=== PATIENT | female | born 1970 | race Caucasian/White ===

== ENCOUNTER 2017-08-10 18:20 | Inpatient (IN) ==
[2017-08-10] MEDS ORDERED: Sod Chloride 0.9% Inj 1,000 ML IV.SIG ONE ×2 (19:03→21:54)
--- NOTE | 2017-08-10 20:00 | ED ---
HPI General Chief Complaint: Altered Mental Status Stated Complaint: pt confused/evac Time Seen by Provider: 08/10/17 18:57 Source: patient, family and EMS Mode of arrival: EMS Limitations: altered mental status History of Present Illness HPI narrative: 47-year-old female that presents to the ED for evaluation of altered mental status and possible seizure. Apparently patient had an allegedly seizure. Son is at bedside who provides most information as patient herself does appear to be altered and somewhat somnolent. Per son apparently she was in the house just standing and also when she fell into the ground and started going limp. Per son she started moving her arms and legs as if he having a seizure. Her son and patient she has no history of seizures. History of drug abuse. No alcohol. She states that currently she feels weak and history is somewhat limited from her she does appear to be somewhat altered. She denies any pain at this time. She denies any history of this in the past. No history of medical issues and takes no medications. Again history is limited. Most of the history is obtained from the son. She does tell me that she does smoke. Her main concern at this time is that she feels very thirsty and needs to drink water. She was put on restraints because she was apparently fighting the ambulance and providers at the scene. Related Data Home Medications Medication Instructions Recorded Confirmed Unable to Obtain Home Meds 08/10/17 08/10/17 Allergies Allergy/AdvReac Type Severity Reaction Status Date / Time haloperidol Allergy Severe TONGUE Verified 08/10/17 22:31 SWELLS Review of Systems ROS Unobtainable All other systems reviewed negative except as stated in HPI [facility] Surgical History Surgical History Hx of tubal ligation (Acute) Social History Social History Substance History: Active Abuse Second Hand Smoke Exposure: Yes Smoking Status: Current every day smoker Tobacco Type: Cigarettes How Often Do You Have a Drink Containing Alcohol: Never Recent Travel in [facility] within the Last 8 Weeks: No Recent Out of Country Travel within the Last 8 Weeks: No Substance Abuse Detail Marijuana: Substance Use Status: Active Route Used Substance Abuse: Inhalation Last Used: today Substance Abuse Comment: family denies other substance use Reason for Use: Get High Immunization History Tetanus Immunization: Unsure Hx Influenza Vaccine This Season: No Exam Narrative Exam Narrative: GENERAL: Well-appearing SKIN: Focused skin assessment warm/dry. HEAD: Atraumatic. Normocephalic. EYES: Pupils equal and round 4 mm reactive to light and accommodation. No scleral icterus. No injection or drainage. ENT: No nasal bleeding or discharge. Mucous membranes pink and moist. Tongue is midline. No uvula deviation. NECK: Trachea midline. No JVD. CARDIOVASCULAR: Regular rate and rhythm. No murmur appreciated. RESPIRATORY: No accessory muscle use. Clear to auscultation. Breath sounds equal bilaterally. GASTROINTESTINAL: Abdomen soft, non-tender, nondistended. Hepatic and splenic margins not palpable. MUSCULOSKELETAL: No obvious deformities. No clubbing. No cyanosis. No edema. Full range of motion of the upper and lower extremities bilaterally. 2+ pulses bilaterally. NEUROLOGICAL: Awake and alert and oriented to person, time and place. No obvious cranial nerve deficits. Motor grossly within normal limits. Normal speech. PSYCHIATRIC: Appropriate mood and affect; insight and judgment normal. Course Initial Documented Vital Signs Temperature 100.4 F H 08/10/17 18:44 Respiratory Rate 16 08/10/17 18:44 Blood Pressure 161/95 H 08/10/17 18:44 Pulse Oximetry 95 08/10/17 18:44 Last Documented Vital Signs Temperature 100.4 F H 08/10/17 18:55 Pulse Rate 122 H 08/10/17 18:55 Respiratory Rate 16 08/10/17 18:55 Blood Pressure 161/95 H 08/10/17 18:55 Pulse Oximetry 96 08/10/17 18:55 NIH Stroke Scale NIH Stroke Scale Level of Consciousness: 1-Drowsy Orientation Questions: 0-Answers both correct Responds to Commands: 0-Both tasks correct Gaze Eye Movement: 0-Horizontal movement WNL Visual Jones: 0-No visual field defect Facial Movement: 0-Normal Motor Functions Arm LEFT: 0-No drift Motor Functions Arm RIGHT: 0-No drift Motor Functions Leg LEFT: 0-No drift Motor Functions Leg RIGHT: 0-No drift Limb Ataxia: 0-No ataxia Sensory Loss: 0-No sensory loss Best Language: 0-Normal Articulation: 0-Normal Extinction or Inattention Sensory: 0-Absent Total: 1 Medical Decision Making LINDA Attestation LINDA supervised visit: Yes Attestation: The history, exam, and medical decision-making in the associated mid-level provider note were completed with my assistance. I reviewed and agree with the findings presented. I attest that I had a [id number] encounter with the patient on the same day, and personally performed and documented my assessment and findings in the medical record. *My assessment and Findings: 47-year-old woman, history of cocaine use, presents with syncope versus seizure. A little bit bizarre. Looks well. No evidence of injury. Initial labs remarkable for elevated lactate, elevated troponin. Suspect this is substance abuse related. She denies any alcohol or substance abuse recently. We will plan on admission for further evaluation. MDM Narrative Medical decision making narrative: 47-year-old female that presents to the ED for evaluation of altered mental status and possible seizure. Patient was properly examined and was found to have signs and symptoms consistent with what appears to be altered mental status. And possible seizure. Hard to obtain a history from the patient but son is at bedside who provides most of the information. Apparently he witnessed episode and does sound like she might have had a syncopal/seizure like event. No history of this in the past per her son and per patient herself. They deny any substance abuse. Patient takes no medications but does smoke. At this time I do recommend labs and imaging. Patient will start IV fluids. She is somewhat altered with ulcers questions appropriately. She seems to be more concerned about drinking water than anything else. My attending Dr. Oseguera was made aware of findings as well as need for medical workup and agrees with plan. Labs and imaging were done. Labs and imaging did show elevated lactic acid as well as what appears to be troponin. Deafly concern for more significant illness. I do recommend admission for further evaluation and treatment. She was started on antibiotics by me. Case was signed out to my attending Dr. Oseguera who will admit the patient Differential Diagnosis Differential Diagnosis: Syncope versus seizure versus new onset seizure versus head injury versus dehydration versus sepsis Medical Records Medical records reviewed: Yes I reviewed the patient's medical records. Lab Data Lab results reviewed: Yes I reviewed the patient's lab results. Lab results narrative: troponin of 0.07 Lactic acid of 4 Result diagrams: 08/10/17 21:00 08/10/17 21:00 Lab Results 08/10/17 08/10/17 08/10/17 Range/Units 21:00 21:00 21:00 WBC 6.5 (4.0-11.0) th/mm3 RBC 4.98 (4.00-5.30) mil/mm3 Hgb 15.1 (11.6-15.3) gm/dL Hct 44.4 (35.0-46.0) % MCV 89.2 (80.0-100.0) fL MCH 30.4 (27.0-34.0) pg MCHC 34.0 (32.0-36.0) % RDW 14.4 (11.6-17.2) % Plt Count 222 (150-450) th/mm3 MPV 10.0 (7.0-11.0) fL Neut % (Auto) 58.8 (16.0-70.0) % Lymph % (Auto) 32.5 (9.0-44.0) % [place] % (Auto) 5.5 (0.0-8.0) % Eos % (Auto) 2.6 (0.0-4.0) % Baso % (Auto) 0.6 (0.0-2.0) % Neut # (Auto) 3.8 (1.8-7.7) th/mm3 Lymph # (Auto) 2.1 (1.0-4.8) th/mm3 [place] # (Auto) 0.4 (0.0-0.9) th/mm3 Eos # (Auto) 0.2 (0.0-0.4) th/mm3 Baso # (Auto) 0.0 (0.0-0.2) th/mm3 WBC Differential . Differential Comment Auto diff final Sodium 142 (136-145) meq/L Potassium 3.5 (3.5-5.1) meq/L Chloride 106 (98-107) meq/L Carbon Dioxide 21.4 (21.0-32.0) meq/L Anion Gap 15 (5-15) meq/L BUN 11 (7-18) mg/dL Creatinine 0.99 (0.50-1.00) mg/dL Estimated GFR 60 L (>89) mL/min Random Glucose 98 (74-106) mg/dL Lactic Acid 4.2 H* (0.4-2.0) mmol/L Calcium 9.2 (8.5-10.1) mg/dL Total Bilirubin 0.3 (0.2-1.0) mg/dL AST 119 H (15-37) U/L ALT 148 H (10-53) U/L Alkaline Phosphatase 138 H (45-117) U/L Total Creatine Kinase 155 (26-192) U/L Troponin I 0.07 H (0.02-0.05) ng/mL Total Protein 8.6 H (6.4-8.2) g/dL Albumin 3.6 (3.4-5.0) g/dL TSH 2.740 (0.358-3.740) uIU/mL Urine Color (Yellw/Straw) Urine Clarity (Clear) Urine pH (5.0-8.5) Ur Specific [place] (1.002-1.035) Urine Protein (Neg-Trace) mg/dL Urine Glucose (UA) (Negative) mg/dL Urine Ketones (Negative) mg/dL Urine Occult Blood (Negative) Urine Nitrate (Negative) Urine Bilirubin (Negative) Urine Urobilinogen (Less than 2) mg/dL Ur Leukocyte Esterase (Negative) Urine RBC (0-3) /hpf Urine WBC (0-5) /hpf Ur Squamous Epith Cells (0-5) /hpf Micro UA Comment Urine Culture Comments Urine Opiates Screen (Neg) Ur Barbiturates Screen (Neg) Ur Amphetamines Screen (Neg) U Benzodiazepines Scrn (Neg) Urine Cocaine Screen (Neg) U Cannabinoids Screen (Neg) Serum Alcohol Less than 3 (0-5) mg/dL 08/10/17 08/10/17 Range/Units 22:35 22:35 WBC (4.0-11.0) th/mm3 RBC (4.00-5.30) mil/mm3 Hgb (11.6-15.3) gm/dL Hct (35.0-46.0) % MCV (80.0-100.0) fL MCH (27.0-34.0) pg MCHC (32.0-36.0) % RDW (11.6-17.2) % Plt Count (150-450) th/mm3 MPV (7.0-11.0) fL Neut % (Auto) (16.0-70.0) % Lymph % (Auto) (9.0-44.0) % [place] % (Auto) (0.0-8.0) % Eos % (Auto) (0.0-4.0) % Baso % (Auto) (0.0-2.0) % Neut # (Auto) (1.8-7.7) th/mm3 Lymph # (Auto) (1.0-4.8) th/mm3 [place] # (Auto) (0.0-0.9) th/mm3 Eos # (Auto) (0.0-0.4) th/mm3 Baso # (Auto) (0.0-0.2) th/mm3 WBC Differential Differential Comment Sodium (136-145) meq/L Potassium (3.5-5.1) meq/L Chloride (98-107) meq/L Carbon Dioxide (21.0-32.0) meq/L Anion Gap (5-15) meq/L BUN (7-18) mg/dL Creatinine (0.50-1.00) mg/dL Estimated GFR (>89) mL/min Random Glucose (74-106) mg/dL Lactic Acid (0.4-2.0) mmol/L Calcium (8.5-10.1) mg/dL Total Bilirubin (0.2-1.0) mg/dL AST (15-37) U/L ALT (10-53) U/L Alkaline Phosphatase (45-117) U/L Total Creatine Kinase (26-192) U/L Troponin I (0.02-0.05) ng/mL Total Protein (6.4-8.2) g/dL Albumin (3.4-5.0) g/dL TSH (0.358-3.740) uIU/mL Urine Color Straw (Yellw/Straw) Urine Clarity Clear (Clear) Urine pH 7.0 (5.0-8.5) Ur Specific [place] 1.005 (1.002-1.035) Urine Protein Negative (Neg-Trace) mg/dL Urine Glucose (UA) Negative (Negative) mg/dL Urine Ketones Negative (Negative) mg/dL Urine Occult Blood Small H (Negative) Urine Nitrate Negative (Negative) Urine Bilirubin Negative (Negative) Urine Urobilinogen Less than 2 (Less than 2) mg/dL Ur Leukocyte Esterase Negative (Negative) Urine RBC Less than 1 (0-3) /hpf Urine WBC Less than 1 (0-5) /hpf Ur Squamous Epith Cells 2 (0-5) /hpf Micro UA Comment Culture not ind Urine Culture Comments Culture not ind Urine Opiates Screen Neg (Neg) Ur Barbiturates Screen Neg (Neg) Ur Amphetamines Screen Neg (Neg) U Benzodiazepines Scrn Neg (Neg) Urine Cocaine Screen Neg (Neg) U Cannabinoids Screen Pos (Neg) Serum Alcohol (0-5) mg/dL Imaging Data Attestation: I personally reviewed and interpreted this imaging study as follows : Radiologist's impression: ITS Impressions Head CT 08/10/17 19:00 CONCLUSION: 1. Negative CT Head non contrast. Chest X-Ray 08/10/17 21:54 CONCLUSION: The lungs are clear. ECG Data EKG Prior to Arrival: No Attestation: I personally reviewed and interpreted this ECG as follows: (EKG shows sinus tachycardia but no sign of acute ischemia read by me and attending.) Discharge Plan Discharge Disposition Patient Disposition: 30 Still Patient Physicians Team ED Provider: Ace Oseguera ED Midlevel Provider: Norberto Vences Primary Care Provider: Jakub Gama Attending Provider: Yfn Patel Discharge Interventions Interventions: Vital Signs Last Done: 08/10/17 18:55 Status ED Status: Admitted Observation Patient
[2017-08-10] MEDS ORDERED: Acetaminophen 325 MG Tablet PO ONE (21:01)
[2017-08-10 21:47] LABS: Baso % (Auto) 0.6 % (0.0-2.0); Eos # (Auto) 0.2 th/mm3 (0.0-0.4); Eos % (Auto) 2.6 % (0.0-4.0); Hematocrit 44.4 % (35.0-46.0); Hemoglobin 15.1 gm/dL (11.6-15.3); Lymph # (Auto) 2.1 th/mm3 (1.0-4.8); Lymph % (Auto) 32.5 % (9.0-44.0); Mean Corpuscular Hemoglobin 30.4 pg (27.0-34.0); Mean Corpuscular Volume 89.2 fL (80.0-100.0); Mono # (Auto) 0.4 th/mm3 (0.0-0.9); Mono % (Auto) 5.5 % (0.0-8.0); Neut # (Auto) 3.8 th/mm3 (1.8-7.7); Neut % (Auto) 58.8 % (16.0-70.0); Platelet Count 222 th/mm3 (150-450); Red Blood Count 4.98 mil/mm3 (4.00-5.30); Red Cell Distribution Width 14.4 % (11.6-17.2); White Blood Count 6.5 th/mm3 (4.0-11.0)
--- NOTE | 2017-08-10 22:11 | ECG ---
Date Performed: 08/10/2017 Time Performed: 18:42:48 PTAGE: 47 years EKG: SINUS TACHYCARDIA POSSIBLE RIGHT VENTRICULAR CONDUCTION DELAY ABNORMAL RHYTHM ECG NO PREVIOUS TRACING DOCTOR: Renata Valles Interpretating Date/Time 08/10/2017 22:10:02
[2017-08-10 22:24] LABS: Alkaline Phosphatase 138 U/L (45-117); Creatine Kinase 155 U/L (26-192); Total Protein 8.6 g/dL (6.4-8.2); Troponin I 0.07 ng/mL (0.02-0.05)
[2017-08-10 22:25] LABS: Alanine Aminotransferase 148 U/L (10-53); Albumin 3.6 g/dL (3.4-5.0); Anion Gap 15 meq/L (5-15); Aspartate Aminotransferase 119 U/L (15-37); Blood Urea Nitrogen 11 mg/dL (7-18); Calcium 9.2 mg/dL (8.5-10.1); Carbon Dioxide 21.4 meq/L (21.0-32.0); Chloride 106 meq/L (98-107); Glomerular Filtration Rate 60 mL/min (>89); Glucose,Random 98 mg/dL (74-106); Potassium 3.5 meq/L (3.5-5.1); Sodium 142 meq/L (136-145)
[2017-08-10 23:01] LABS: Bilirubin,Urine Negative (Negative); Clarity,Urine Clear (Clear); Color,Urine Straw (Yellw/Straw); Glucose,Urine (UA) Negative (Negative); Leukocyte Esterase,Urine Negative (Negative); Nitrite,Urine Negative (Negative); Specific Gravity,Urine 1.005 (1.002-1.035); Squamous Epithelial Cell,Urine 2 /hpf (0-5)
[2017-08-10 23:03] LABS: Amphetamine Screen,Urine Neg (Neg); Barbiturate Screen,Urine Neg (Neg); Cannabinoid Screen,Urine Pos (Neg); Cocaine Screen,Urine Neg (Neg); Opiate Screen,Urine Neg (Neg)
[2017-08-10] MEDS ORDERED: Piperacil/Tazo 4.5 GM Premix 4.5 GM/100 ML BAG IV.SIG STA (23:05)
[2017-08-10] MEDS ORDERED: Vancomycin Inj 1,000 MG in Sodium Chlor 0.9% Inj 250 ML IV.SIG STA (23:05)
--- NOTE | 2017-08-10 23:06 | XR ---
EXAM DATE: 08/10/2017 11:00 PM EDT AGE/SEX: 47 years / Female INDICATIONS: Short of breath. CLINICAL DATA: This is the patient's initial encounter. Patient reports that signs and symptoms have been present for 1 day and indicates a pain score of 0/10. MEDICAL/SURGICAL HISTORY: None. None. COMPARISON: No prior exams available for comparison. FINDINGS: A single AP view of the chest demonstrates the lungs to be symmetrically aerated without evidence of mass, infiltrate or effusion. The cardiomediastinal contours are unremarkable. Osseous structures a re intact. CONCLUSION: The lungs are clear. Electronically signed by: Nick Sandoval MD 08/10/2017 11:04 PM EDT
[2017-08-11] MEDS: Sod Chloride 0.9% Inj 1,000 ML IV.CONT SCH ×3 (00:35→20:53)
--- NOTE | 2017-08-11 02:03 | P.HPIM ---
History of Present Illness Primary Care Physician: Jakub Gama MD, PhD Chief Complaint: Tired History of Present Illness: 47-year-old female with reported history of seizures, drug abuse in the past, hepatitis C, bipolar disorder who is brought in today following a witnessed seizure at home. Patient says she does not remember anything since this morning , and family is not at bedside at this time. Patient says she is currently feeling all right, tired. She does say she ran out of Neurontin recently, however is not sure what this medication is for. She also says she takes her mother's Ativan, and her use of this medication has been intermittent. She reports her most recent seizure was years ago after running out of Ativan. She reports feeling fine this morning. Denies any fevers, chills, dysuria, chest pain, shortness of breath, nausea, vomiting - Inpatient Certification If this patient has been admitted as an Inpatient: I certify that the inpatient services were ordered in accordance with Medicare regulations governing the order. This includes certification that hospital inpatient services are reasonable and necessary and in the case of services not specified as inpatient-only under 42 CFR 419.22(n), that they are appropriately provided as inpatient services in accordance to with the 2-midnight benchmark under 43 CFR 412.3(e) Review of Systems All other systems reviewed negative except as stated in HPI PMF[facility] - History History Provided By: Patient, Family Member - Surgical History Surgical History: Surgical History (Last Updated 08/11/17 @ 02:00 by Yfn Patel MD) Hx of cholecystectomy Hx of tubal ligation - Family History Family History: Family History (Last Updated 08/11/17 @ 02:00 by Yfn Patel MD) Mother Heart disease Mother Heart disease - Tobacco History Second Hand Smoke Exposure: Yes Tobacco Use In Past 30 Days: Yes Smoking Status: Current every day smoker Tobacco Type: Cigarettes - Alcohol History How Often Do You Have a Drink Containing Alcohol: Never - Substance Use History Substance History: Active Abuse - Substance Use Type Marijuana Status: Active Route Used: Inhalation Last Used: today Reason for Use: Get High Comment: family denies other substance use - Travel History Recent Travel in the [place] Within the Last 8 Weeks: No Recent Travel Out of the Country Within the Last 8 Weeks: No - Immunization History Tetanus Immunization: Unsure Hx Influenza Vaccine This Season: No Medications and Allergies Active Medications: Active Medications Sodium Chloride (Ns Inj) 1,000 mls @ 75 mls/hr IV.CONT .[id number] [facility] Last Admin: 08/11/17 00:35 Dose: 75 mls/hr Sodium Chloride (Ns Flush) 2 ml IV.FLUSH PRN PRN PRN Reason: FLUSH AFTER USING IV ACCESS Allergies Allergy/AdvReac Type Severity Reaction Status Date / Time haloperidol Allergy Severe TONGUE Verified 08/10/17 22:31 SWELLS Home Medications Medication Instructions Recorded Confirmed Type Unable to Obtain Home Meds 08/10/17 08/10/17 History Exam Vital signs: Vital Signs 08/10/17 18:44 08/10/17 18:55 08/10/17 23:45 Temperature 100.4 F H 100.4 F H 98.9 F Pulse Rate 122 H 98 H Respiratory Rate 16 16 20 Blood Pressure 161/95 H 161/95 H 165/72 H Pulse Oximetry 95 96 Intake & Output 08/10/17 08/10/17 08/11/17 06:59 18:59 06:59 Weight 52 kg 63.796 kg Narrative: GENERAL: Lying in bed. Appears comfortable. She is oriented to year, month, not date SKIN: Warm and dry. HEAD: Atraumatic. Normocephalic. EYES: Pupils equal and round. No scleral icterus. No injection or drainage. ENT: No nasal bleeding or discharge. Mucous membranes pink and moist. NECK: Trachea midline. No JVD. CARDIOVASCULAR: Regular rate and rhythm. RESPIRATORY: No accessory muscle use. Clear to auscultation. Breath sounds equal bilaterally. GASTROINTESTINAL: Abdomen soft, non-tender, nondistended. Hepatic and splenic margins not palpable. MUSCULOSKELETAL: Extremities without clubbing, cyanosis, or edema. No obvious deformities. NEUROLOGICAL: Somnolent, wakes up for exam. No obvious cranial nerve deficits. Motor grossly within normal limits. Five out of 5 muscle strength in the arms and legs. Normal speech. PSYCHIATRIC: Appropriate mood and affect; insight and judgment normal. Results - Labs CBC & Chem 7: 08/10/17 21:00 08/10/17 21:00 Labs: Short CBC 08/10/17 Range/Units 21:00 WBC 6.5 (4.0-11.0) th/mm3 Hgb 15.1 (11.6-15.3) gm/dL Hct 44.4 (35.0-46.0) % Plt Count 222 (150-450) th/mm3 BMP 08/10/17 21:00 Sodium 142 Potassium 3.5 Chloride 106 Carbon Dioxide 21.4 BUN 11 Creatinine 0.99 Calcium 9.2 Cardiac Enzymes 08/10/17 Range/Units 21:00 Total Creatine Kinase 155 (26-192) U/L Troponin I 0.07 H (0.02-0.05) ng/mL Liver Function 08/10/17 Range/Units 21:00 Total Bilirubin 0.3 (0.2-1.0) mg/dL AST 119 H (15-37) U/L ALT 148 H (10-53) U/L Alkaline Phosphatase 138 H (45-117) U/L Albumin 3.6 (3.4-5.0) g/dL Urine 08/10/17 Range/Units 22:35 Urine Color Straw (Yellw/Straw) Urine Clarity Clear (Clear) Urine pH 7.0 (5.0-8.5) Ur Specific [place] 1.005 (1.002-1.035) Urine Protein Negative (Neg-Trace) mg/dL Urine Glucose (UA) Negative (Negative) mg/dL - Imaging Impressions Head CT 08/10/17 19:00 CONCLUSION: 1. Negative CT Head non contrast. Chest X-Ray 08/10/17 21:54 CONCLUSION: The lungs are clear. Caprini VTE Risk Assessment Caprini VTE Risk Assessment: No/Low Risk (score <= 1) Caprini Risk Assessment Model: Point Value = 1 Point Value = 2 Point Value = 3 Point Value = 5 Age 41-60 Minor surgery BMI > 25 kg/m2 Swollen legs Varicose veins or History of unexplained or recurrent spontaneous Oral contraceptives or hormone replacement Sepsis (< 1 month) Serious lung disease, including pneumonia (< 1 month) Abnormal pulmonary function Acute myocardial infarction Congestive heart failure (< 1 month) History of inflammatory bowel disease Medical patient at bed rest Age 61-74 Arthroscopic surgery Major open surgery (> 45 min) Laparoscopic surgery (> 45 min) Malignancy Confined to bed (> 72 hours) Immobilizing plaster cast Central venous access Age >= 75 History of VTE Family history of VTE Factor V Leiden Prothrombin [id number] Lupus anticoagulant Anticardiolipin antibodies Elevated serum homocysteine Heparin-induced thrombocytopenia Other congenital or acquired thrombophilia Stroke (< 1 month) Elective arthroplasty Hip, pelvis, or leg fracture Acute spinal cord injury (< 1 month) Prophylaxis Regimen: Total Risk Factor Score Risk Level Prophylaxis Regimen 0-1 Low Early ambulation 2 Moderate Order ONE of the following: *Sequential Compression Device (SCD) *Heparin 5000 units SQ BID 3-4 Higher Order ONE of the following medications: *Heparin 5000 units SQ TID *Enoxaparin/Lovenox 40 mg SQ daily (WT < 150 kg, CrCl > 30 mL/min) *Enoxaparin/Lovenox 30 mg SQ daily (WT < 150 kg, CrCl > 10-29 mL/min) *Enoxaparin/Lovenox 30 mg SQ BID (WT < 150 kg, CrCl > 30 mL/min) AND/OR *Sequential Compression Device (SCD) 5 or more Highest Order ONE of the following medications: *Heparin 5000 units SQ TID (Preferred with Epidurals) *Enoxaparin/Lovenox 40 mg SQ daily (WT < 150 kg, CrCl > 30 mL/min) *Enoxaparin/Lovenox 30 mg SQ daily (WT < 150 kg, CrCl > 10-29 mL/min) *Enoxaparin/Lovenox 30 mg SQ BID (WT < 150 kg, CrCl > 30 mL/min) AND *Sequential Compression Device (SCD) Assessment and Plan - Plan //Suspected seizure. = Likely secondary to intermittent Ativan and Neurontin use. Drug screen negative for cocaine. Also negative for benzodiazepine. = Negative CT head. = EEG ordered and pending. Consult neurology. Neurochecks. //Tobacco use. Patient counseled on cessation //History of bipolar disorder. Patient not on regular medications. Appears to be calm. Will monitor. //Marijuana use. Patient counseled on cessation. Discussed Condition With: Patient, nurse, ED physician.
[2017-08-11 03:36] LABS: Baso % (Auto) 0.2 % (0.0-2.0); Eos % (Auto) 0.7 % (0.0-4.0); Hematocrit 39.7 % (35.0-46.0); Hemoglobin 13.7 gm/dL (11.6-15.3); Lymph # (Auto) 1.5 th/mm3 (1.0-4.8); Lymph % (Auto) 23.8 % (9.0-44.0); Mean Corpuscular HGB Conc 34.6 % (32.0-36.0); Mean Corpuscular Hemoglobin 30.8 pg (27.0-34.0); Mean Platelet Volume 8.8 fL (7.0-11.0); Mono # (Auto) 0.4 th/mm3 (0.0-0.9); Mono % (Auto) 6.8 % (0.0-8.0); Neut # (Auto) 4.4 th/mm3 (1.8-7.7); Neut % (Auto) 68.5 % (16.0-70.0); Platelet Count 150 th/mm3 (150-450); Red Blood Count 4.46 mil/mm3 (4.00-5.30); Red Cell Distribution Width 14.1 % (11.6-17.2); White Blood Count 6.5 th/mm3 (4.0-11.0)
[2017-08-11 05:19] LABS: Alanine Aminotransferase 125 U/L (10-53); Albumin 3.1 g/dL (3.4-5.0); Alkaline Phosphatase 103 U/L (45-117); Anion Gap 12 meq/L (5-15); Aspartate Aminotransferase 118 U/L (15-37); Blood Urea Nitrogen 9 mg/dL (7-18); Carbon Dioxide 20.5 meq/L (21.0-32.0); Chloride 110 meq/L (98-107); Glomerular Filtration Rate 69 mL/min (>89); Glucose,Random 134 mg/dL (74-106); Potassium 3.3 meq/L (3.5-5.1); Sodium 142 meq/L (136-145); Total Protein 7.3 g/dL (6.4-8.2)
[2017-08-11 05:23] LABS: Troponin I 2.06 ng/mL (0.02-0.05)
[2017-08-11 05:36] LABS: CKMB Percent 0.9 % (0.0-4.0); Creatine Kinase MB 18.1 ng/mL (0.5-3.6)
--- NOTE | 2017-08-11 09:26 | P.PN ---
Subjective Interval history: Follow-up visit seizures, anxiety. Patient seen and examined today. Appears to be very anxious, rapid movement in the bed. States she has pain for she had any sites. Patient states that she has been on clonazepam since she was 11 years old. She was recently, about a year switched States that she saw a primary care doctor who have given her gabapentin for her anxiety but she ran out of the gabapentin. States that she has been taking her mother's Ativan. States that her mother has been taking care of her and giving her medications to calm her down. States that it was the first time that she had a seizure event with the use of medications. Denies SOB/ dyspnea. Denies chest pain, palpitations, headaches, dizziness. Denies fevers, chills, n/v/d. Denies dysuria. Physical Exam Vital signs: Vital Signs 08/10/17 18:44 08/10/17 18:55 08/10/17 23:45 Temperature 100.4 F H 100.4 F H 98.9 F Pulse Rate 122 H 98 H Respiratory Rate 16 16 20 Blood Pressure 161/95 H 161/95 H 165/72 H Pulse Oximetry 95 96 08/11/17 00:00 08/11/17 07:59 Temperature 98.9 F 97.7 F Pulse Rate 68 77 Respiratory Rate 16 16 Blood Pressure 121/75 152/82 H Pulse Oximetry 98 97 Intake & Output 08/10/17 08/11/17 08/11/17 18:59 06:59 18:59 Intake Total 250 / 250 2099 / 2099 Balance 250 / 250 2099 / 2099 Weight 52 kg 63.796 kg Intake: IV 250 / 250 2099 Zosyn 4.5 GM Premix 4.5 gm In 100 / 100 100 ml @ 200 mls/hr IV.SIG STAT STA Rx#:[id number] NS Inj 1,000 ML @ Wide Open IV. 1000 / 1000 SIG BOLUS ONE Rx#:[id number] Vancomycin Inj 1,000 MG In NS 250 / 250 Inj 250 ML @ 250 mls/hr IV.SIG STAT STA Rx#:[id number] Other: Weight On Admission 63.796 kg Narrative: GENERAL: This is a well-nourished, well-developed patient, in no apparent distress. SKIN: Warm and dry HEENT: Normocephalic. Pupils equal round and reactive. Nose without bleeding. Airway patent. NECK: Trachea midline. No JVD. Supple. CARDIOVASCULAR: Regular rate and rhythm without murmurs, gallops, or rubs. RESPIRATORY: Clear to auscultation. Breath sounds equal bilaterally. No wheezes , rales, or rhonchi. GASTROINTESTINAL: Abdomen soft, non-tender, nondistended. Bowel Sounds normoactive x4. MUSCULOSKELETAL: Extremities without clubbing, cyanosis, or edema. NEUROLOGICAL: Awake and alert. Oriented to place, person. Moves all extremities. Pressured speech. - Urinary Catheter Management Straight Cath placed during this visit: no Results - Labs CBC & Chem 7: 08/11/17 02:51 08/11/17 02:51 Laboratory Results - last 24 hr 08/10/17 08/10/17 08/10/17 21:00 21:00 21:00 WBC 6.5 RBC 4.98 Hgb 15.1 Hct 44.4 MCV 89.2 MCH 30.4 MCHC 34.0 RDW 14.4 Plt Count 222 MPV 10.0 Neut % (Auto) 58.8 Lymph % (Auto) 32.5 [place] % (Auto) 5.5 Eos % (Auto) 2.6 Baso % (Auto) 0.6 Neut # (Auto) 3.8 Lymph # (Auto) 2.1 [place] # (Auto) 0.4 Eos # (Auto) 0.2 Baso # (Auto) 0.0 WBC Differential . Differential Comment Auto diff final Sodium 142 Potassium 3.5 Chloride 106 Carbon Dioxide 21.4 Anion Gap 15 BUN 11 Creatinine 0.99 Estimated GFR 60 L POC Glucose Random Glucose 98 Lactic Acid 4.2 H* Calcium 9.2 Total Bilirubin 0.3 AST 119 H ALT 148 H Alkaline Phosphatase 138 H Ammonia Total Creatine Kinase 155 CK-MB (CK-2) CK-MB (CK-2) % Troponin I 0.07 H Total Protein 8.6 H Albumin 3.6 TSH 2.740 Urine Color Urine Clarity Urine pH Ur Specific [place] Urine Protein Urine Glucose (UA) Urine Ketones Urine Occult Blood Urine Nitrate Urine Bilirubin Urine Urobilinogen Ur Leukocyte Esterase Urine RBC Urine WBC Ur Squamous Epith Cells Micro UA Comment Urine Culture Comments Urine Opiates Screen Ur Barbiturates Screen Ur Amphetamines Screen U Benzodiazepines Scrn Urine Cocaine Screen U Cannabinoids Screen Serum Alcohol Less than 3 07/04/2508/10/17 08/10/17 22:35 22:35 23:40 WBC RBC Hgb Hct MCV MCH MCHC RDW Plt Count MPV Neut % (Auto) Lymph % (Auto) [place] % (Auto) Eos % (Auto) Baso % (Auto) Neut # (Auto) Lymph # (Auto) [place] # (Auto) Eos # (Auto) Baso # (Auto) WBC Differential Differential Comment Sodium Potassium Chloride Carbon Dioxide Anion Gap BUN Creatinine Estimated GFR POC Glucose Random Glucose Lactic Acid 0.8 Calcium Total Bilirubin AST ALT Alkaline Phosphatase Ammonia Total Creatine Kinase CK-MB (CK-2) CK-MB (CK-2) % Troponin I Total Protein Albumin TSH Urine Color Straw Urine Clarity Clear Urine pH 7.0 Ur Specific [place] 1.005 Urine Protein Negative Urine Glucose (UA) Negative Urine Ketones Negative Urine Occult Blood Small H Urine Nitrate Negative Urine Bilirubin Negative Urine Urobilinogen Less than 2 Ur Leukocyte Esterase Negative Urine RBC Less than 1 Urine WBC Less than 1 Ur Squamous Epith Cells 2 Micro UA Comment Culture not ind Urine Culture Comments Culture not ind Urine Opiates Screen Neg Ur Barbiturates Screen Neg Ur Amphetamines Screen Neg U Benzodiazepines Scrn Neg Urine Cocaine Screen Neg U Cannabinoids Screen Pos Serum Alcohol 08/11/17 08/11/17 08/11/17 01:11 02:51 02:51 WBC 6.5 RBC 4.46 Hgb 13.7 Hct 39.7 MCV 89.0 MCH 30.8 MCHC 34.6 RDW 14.1 Plt Count 150 D MPV 8.8 Neut % (Auto) 68.5 Lymph % (Auto) 23.8 [place] % (Auto) 6.8 Eos % (Auto) 0.7 Baso % (Auto) 0.2 Neut # (Auto) 4.4 Lymph # (Auto) 1.5 [place] # (Auto) 0.4 Eos # (Auto) 0.0 Baso # (Auto) 0.0 WBC Differential . Differential Comment Auto diff final Sodium 142 Potassium 3.3 L Chloride 110 H Carbon Dioxide 20.5 L Anion Gap 12 BUN 9 Creatinine 0.87 Estimated GFR 69 L POC Glucose Random Glucose 134 H Lactic Acid Calcium 8.0 L D Total Bilirubin 0.5 AST 118 H ALT 125 H Alkaline Phosphatase 103 Ammonia 22 Total Creatine Kinase CK-MB (CK-2) CK-MB (CK-2) % Troponin I Total Protein 7.3 D Albumin 3.1 L TSH Urine Color Urine Clarity Urine pH Ur Specific [place] Urine Protein Urine Glucose (UA) Urine Ketones Urine Occult Blood Urine Nitrate Urine Bilirubin Urine Urobilinogen Ur Leukocyte Esterase Urine RBC Urine WBC Ur Squamous Epith Cells Micro UA Comment Urine Culture Comments Urine Opiates Screen Ur Barbiturates Screen Ur Amphetamines Screen U Benzodiazepines Scrn Urine Cocaine Screen U Cannabinoids Screen Serum Alcohol 08/11/17 08/11/17 02:51 08:05 WBC RBC Hgb Hct MCV MCH MCHC RDW Plt Count MPV Neut % (Auto) Lymph % (Auto) [place] % (Auto) Eos % (Auto) Baso % (Auto) Neut # (Auto) Lymph # (Auto) [place] # (Auto) Eos # (Auto) Baso # (Auto) WBC Differential Differential Comment Sodium Potassium Chloride Carbon Dioxide Anion Gap BUN Creatinine Estimated GFR POC Glucose 81 Random Glucose Lactic Acid Calcium Total Bilirubin AST ALT Alkaline Phosphatase Ammonia Total Creatine Kinase 2034 H CK-MB (CK-2) 18.1 H CK-MB (CK-2) % 0.9 Troponin I 2.06 H* D Total Protein Albumin TSH Urine Color Urine Clarity Urine pH Ur Specific [place] Urine Protein Urine Glucose (UA) Urine Ketones Urine Occult Blood Urine Nitrate Urine Bilirubin Urine Urobilinogen Ur Leukocyte Esterase Urine RBC Urine WBC Ur Squamous Epith Cells Micro UA Comment Urine Culture Comments Urine Opiates Screen Ur Barbiturates Screen Ur Amphetamines Screen U Benzodiazepines Scrn Urine Cocaine Screen U Cannabinoids Screen Serum Alcohol - Imaging Impressions Head CT 08/10/17 19:00 CONCLUSION: 1. Negative CT Head non contrast. Chest X-Ray 08/10/17 21:54 CONCLUSION: The lungs are clear. Assessment and Plan - Plan 47-year-old female with reported history of seizures, drug abuse in the past, hepatitis C, bipolar disorder who is brought in today following a witnessed seizure at home. Seizure -Likely secondary to substance withdrawal either Klonopin or gabapentin. Drug screen negative for cocaine. Also negative for benzodiazepine. -Negative CT head. -EEG ordered, pending. -Consult neurology, appreciate recommendations. -Neurochecks. -Ativan as needed for seizures Rhabdomyolysis Elevated troponin Elevated CK -Continue with IV fluids increased to 150 mL's an hour. -Denies any chest pain -Trend troponin, CK -Initial EKG reviewed sinus tachycardia 120, with possible right ventricular conduction delay. No ST segment changes noted. -Repeat EKG. -Cardiology consulted for further evaluation and assessment, appreciate recommendations Tobacco use. Patient counseled on cessation History of bipolar disorder. Anxiety -Patient not on regular medications. Appears to be anxious. -We will give clonazepam 0.5 mg for now. Possible other substance abuse - Seeking behavior. Increase anxiety. Possible synthetic drug use that this is not appear on toxicology. Marijuana use. Patient counseled on cessation. Hep C history, untreated -Elevated AST/ ALT -Refer to outpatient follow up DVT prop SCDs, early ambulation Code Status: Full code Discussed Condition With: Patient, nursing Discharge Planning: Plan to DC home when clinically improved.
--- NOTE | 2017-08-11 09:31 | MB ---
cc: Jeimy Roberson MD DATE: 08/11/2017 REASON FOR CONSULTATION: Seizure. HISTORY OF PRESENT ILLNESS: This 47-year-old woman with a history of drug abuse, hepatitis C, bipolar disorder, apparently was taking gabapentin for bipolar, ran out 2 days prior, as well as running out of Klonopin and took a friend's Vistaril. She denies drug abuse. She did not have a warning before the event. No tongue biting or urinary incontinence. She states, per history, that she has had 3 events such as these, all related to coming off the medication. This morning, she feels back to baseline. PAST SURGICAL HISTORY: Cholecystectomy and tubal ligation. FAMILY HISTORY: Heart disease in the mother. SOCIAL HISTORY: Smoker, every day, cigarettes. Denies drug abuse, but there is a drug abuse history in the past. PHYSICAL EXAMINATION: VITAL SIGNS: Temperature 97.7, pulse 77, respiratory rate 16, blood pressure 152/82, saturating 97% on room air. NEUROLOGIC: She is awake and alert. She is oriented and fluent. Pupils reactive. Visual field full. Face symmetrical. Tongue midline. Normal hearing. Motor rizo, she does not exhibit any significant atrophy or weakness. No drift, no leg lag. Cerebellar testing is normal. DTRs are 1-2+. Sensory otherwise is normal. Toes are both downgoing. Gait is not assessed at this time at bedside. Defer to PT. LABORATORY DATA: Reviewed. Her CBC is unremarkable. Chemistries show a potassium of 3.3, CO2 of 20.5, GFR 69, current glucose is 81, calcium 8, ALT 125, AST 118. CK is 2034. Troponin 2.06. Albumin 3.1. Lactic acid was 4.2, but recent is 0.8. Urine shows small occult blood. Toxicology is positive for cannabinoids. IMAGING STUDIES: Her CT of the head is negative, noncontrast. IMPRESSION: Seizures, likely due to substance withdrawal, such as gabapentin, possible from Klonopin. RECOMMENDATIONS: Obtain an EEG. Maintain her on telemetry. Monitor for seizures. Ativan to be used p.r.n. if a witnessed prolonged seizure occurs and depending on findings, further recommendations will be made. MD EDI Potter/YULIA , 09:14 AM , 09:30 AM
[2017-08-11 11:53] LABS: Troponin I 1.79 ng/mL (0.02-0.05)
[2017-08-11 12:08] LABS: Creatine Kinase MB 18.8 ng/mL (0.5-3.6)
[2017-08-11] MEDS: clonazePAM 0.5 MG Tablet PO SCH ×2 (14:06→20:53)
[2017-08-11 17:13] LABS: Troponin I 1.91 ng/mL (0.02-0.05)
[2017-08-11 17:25] LABS: Creatine Kinase MB 17.7 ng/mL (0.5-3.6)
[2017-08-12] MEDS: Sod Chloride 0.9% Inj 1,000 ML IV.CONT SCH ×2 (02:54→09:39)
[2017-08-12 06:23] LABS: Baso % (Auto) 0.3 % (0.0-2.0); Eos # (Auto) 0.2 th/mm3 (0.0-0.4); Eos % (Auto) 2.7 % (0.0-4.0); Hematocrit 45.4 % (35.0-46.0); Hemoglobin 15.3 gm/dL (11.6-15.3); Lymph # (Auto) 1.9 th/mm3 (1.0-4.8); Lymph % (Auto) 33.4 % (9.0-44.0); Mean Corpuscular HGB Conc 33.7 % (32.0-36.0); Mean Corpuscular Hemoglobin 30.1 pg (27.0-34.0); Mean Corpuscular Volume 89.2 fL (80.0-100.0); Mean Platelet Volume 9.2 fL (7.0-11.0); Mono # (Auto) 0.3 th/mm3 (0.0-0.9); Mono % (Auto) 4.9 % (0.0-8.0); Neut # (Auto) 3.3 th/mm3 (1.8-7.7); Neut % (Auto) 58.7 % (16.0-70.0); Platelet Count 158 th/mm3 (150-450); Red Blood Count 5.09 mil/mm3 (4.00-5.30); Red Cell Distribution Width 14.5 % (11.6-17.2); White Blood Count 5.6 th/mm3 (4.0-11.0)
[2017-08-12 06:48] LABS: Anion Gap 9 meq/L (5-15); Blood Urea Nitrogen 5 mg/dL (7-18); Calcium 8.5 mg/dL (8.5-10.1); Carbon Dioxide 24.8 meq/L (21.0-32.0); Chloride 109 meq/L (98-107); Glomerular Filtration Rate Greater Than 89 mL/min (>89); Glucose,Random 87 mg/dL (74-106); Potassium 3.3 meq/L (3.5-5.1); Sodium 143 meq/L (136-145)
[2017-08-12 07:05] LABS: Creatine Kinase 1090 U/L (26-192)
[2017-08-12 07:24] LABS: CKMB Percent 1.3 % (0.0-4.0); Creatine Kinase MB 13.7 ng/mL (0.5-3.6)
[2017-08-12] MEDS ORDERED: Potassium Chloride 25 MEQ Effervescent Tablet PO ONE (08:21)
--- NOTE | 2017-08-12 09:14 | P.PN ---
Subjective Interval history: Follow-up visit seizures, anxiety, rhabdomyolysis. Patient seen and examined today. Reports she is doing okay. States she has some achy muscles. Discussed with patient importance of IV fluid hydration secondary to her rhabdomyolysis. When patient was asked what other drugs did she take, patient states "I only took marijuana, but I do not know if it is laced with something. " Patient appears to be untruthful with what she is saying. States "I do not know what is in it because somebody is just giving it to me." Discussed importance of telling the truth so she can get the medical attention that she needed. Patient did not respond. Denies SOB/ dyspnea. Denies chest pain, palpitations, headaches, dizziness. Denies fevers, chills, n/v/d. Denies dysuria. As per nursing, patient is always going to the bathroom. Appears to be anxious for most parts. Suspect that she is taking something different aside from which she is being given. Physical Exam Vital signs: Vital Signs 08/11/17 11:51 08/11/17 16:00 08/11/17 19:25 Temperature 97.9 F 98.1 F 98.2 F Pulse Rate 76 62 56 L Respiratory Rate 18 12 17 Blood Pressure 146/88 H 151/89 H 148/85 H Pulse Oximetry 99 98 98 08/12/17 00:01 08/12/17 03:23 08/12/17 08:00 Temperature 98.0 F 97.9 F 98 F Pulse Rate 55 L 65 74 Respiratory Rate 17 17 18 Blood Pressure 138/77 134/79 140/86 Pulse Oximetry 95 95 98 Intake & Output 08/11/17 08/12/17 08/12/17 18:59 06:59 18:59 Intake Total 2600 / 2600 2099 / 2100 Balance 2600 / 2600 2099 / 2099 Intake: IV 2600 / 2600 2099 / 2100 NS Inj 1,000 ML @ 150 mls/hr IV 500 / 500 2099 / 2099 .CONT .[id number] KENYETTA Rx#:[id number] Zosyn 4.5 GM Premix 4.5 gm In 100 / 100 100 ml @ 200 mls/hr IV.SIG STAT STA Rx#:[id number] NS Inj 1,000 ML @ Wide Open IV. 1000 / 1000 SIG BOLUS ONE Rx#:[id number] Other: Date of Last Bowel Movement 08/11/17 Narrative: GENERAL: This is a well-nourished, well-developed patient, in no apparent distress. SKIN: Warm and dry HEENT: Normocephalic. Pupils equal round and reactive. Nose without bleeding. Airway patent. NECK: Trachea midline. No JVD. Supple. CARDIOVASCULAR: Regular rate and rhythm without murmurs, gallops, or rubs. RESPIRATORY: Clear to auscultation. Breath sounds equal bilaterally. No wheezes , rales, or rhonchi. GASTROINTESTINAL: Abdomen soft, non-tender, nondistended. Bowel Sounds normoactive x4. MUSCULOSKELETAL: Extremities without clubbing, cyanosis, or edema. NEUROLOGICAL: Awake and alert. Oriented to place, person. Moves all extremities. Pressured speech. - Urinary Catheter Management Straight Cath placed during this visit: yes Reason for continuing: Not indwelling catheter Insertion date: 08/11/17 Insertion time: 21:45 Results - Labs CBC & Chem 7: 08/12/17 05:25 08/12/17 05:25 Laboratory Results - last 24 hr 08/11/17 08/11/17 08/11/17 10:43 15:45 17:43 WBC RBC Hgb Hct MCV MCH MCHC RDW Plt Count MPV Neut % (Auto) Lymph % (Auto) [place] % (Auto) Eos % (Auto) Baso % (Auto) Neut # (Auto) Lymph # (Auto) [place] # (Auto) Eos # (Auto) Baso # (Auto) WBC Differential Differential Comment Sodium Potassium Chloride Carbon Dioxide Anion Gap BUN Creatinine Estimated GFR POC Glucose 81 Random Glucose Calcium Total Creatine Kinase 1937 H 1795 H CK-MB (CK-2) 18.8 H 17.7 H CK-MB (CK-2) % 1.0 1.0 Troponin I 1.79 H* D 1.91 H* D 08/12/17 08/12/17 05:25 05:25 WBC 5.6 RBC 5.09 Hgb 15.3 Hct 45.4 MCV 89.2 MCH 30.1 MCHC 33.7 RDW 14.5 Plt Count 158 MPV 9.2 Neut % (Auto) 58.7 Lymph % (Auto) 33.4 [place] % (Auto) 4.9 Eos % (Auto) 2.7 Baso % (Auto) 0.3 Neut # (Auto) 3.3 Lymph # (Auto) 1.9 [place] # (Auto) 0.3 Eos # (Auto) 0.2 Baso # (Auto) 0.0 WBC Differential . Differential Comment Auto diff final Sodium 143 Potassium 3.3 L Chloride 109 H Carbon Dioxide 24.8 Anion Gap 9 BUN 5 L Creatinine 0.58 Estimated GFR Greater than 89 POC Glucose Random Glucose 87 Calcium 8.5 Total Creatine Kinase 1090 H CK-MB (CK-2) 13.7 H CK-MB (CK-2) % 1.3 Troponin I Assessment and Plan - Plan 47-year-old female with reported history of seizures, drug abuse in the past, hepatitis C, bipolar disorder who is brought in today following a witnessed seizure at home. Seizure -Likely secondary to substance withdrawal either Klonopin or gabapentin. Drug screen negative for cocaine. Also negative for benzodiazepine. -Negative CT head. -EEG ordered, pending. -Consult neurology, appreciate recommendations. -Neurochecks. -Ativan as needed for seizures Rhabdomyolysis Elevated troponin Elevated CK -Continue with IV fluids increased to 150 mL's an hour. -Denies any chest pain -Trend troponin, CK -Initial EKG reviewed sinus tachycardia 120, with possible right ventricular conduction delay. No ST segment changes noted. -Repeat EKG, SB no ST changes -Cardiology consulted for further evaluation and assessment, appreciate recommendations -Plan for stress test. NPO for now Tobacco use. Patient counseled on cessation -Nicotine Patch History of bipolar disorder. Anxiety -Patient not on regular medications. Appears to be anxious. -Clonazepam 0.5 mg, will DC and switch to hydroxyzine Possible other substance abuse -Seeking behavior. Increase anxiety. Possible synthetic drug use that this is not appear on toxicology. -Appears to be untruthful and gets evasive when asked. -Discussed with nurse to search patient's belongings. Marijuana use. Patient counseled on cessation. Hep C history, untreated -Elevated AST/ ALT -Refer to outpatient follow up DVT prop SCDs, early ambulation Code Status: Full code Discussed Condition With: Patient, nursing, Dr. Valles, Dr. Last Discharge Planning: Plan to DC home when clinically improved.
[2017-08-12] MEDS: clonazePAM 0.5 MG Tablet PO SCH (09:17)
[2017-08-12 15:17] LABS: Barbiturate Screen,Urine Neg (Neg)
[2017-08-12 15:20] LABS: Amphetamine Screen,Urine Neg (Neg); Cannabinoid Screen,Urine Pos (Neg); Cocaine Screen,Urine Neg (Neg); Opiate Screen,Urine Neg (Neg)
--- NOTE | 2017-08-12 15:32 | MG ---
cc: Tyrone Saini MD, PhD DATE OF STUDY: 08/12/2017 TECHNIQUE: This is a 17-channel EEG. DESCRIPTION: Background rhythm reveals a symmetrical alpha. There is some beta activity, probably medication effect. Some sharply contoured waves are identified; however, there are no true epileptiform discharges. There are sleep spindles present. Vertex sharp waves are seen due to sleep. Photic results in a fairly well-developed driving response. INTERPRETATION: Normal electroencephalogram. Tyrone Saini MD, PhD MACI/SB , 03:24 PM , 03:30 PM
[2017-08-12] MEDS ORDERED: Regadenoson Inj 0.4 MG/5 ML Syringe IV.PUSH ONE (15:56)
--- NOTE | 2017-08-12 16:49 | NM ---
EXAM DATE: 08/12/2017 4:47 PM EDT AGE/SEX: 47 years / Female INDICATIONS:Angina. . CLINICAL DATA: This is the patient's initial encounter. Patient reports that signs and symptoms have been present for 1 day and indicates a pain score of 1/10. MEDICAL/SURGICAL HISTORY: Hepatitis C. Tubal ligation. Cholecystectomy. COMPARISON: No prior exams available for comparison. DOSE: 8.8 mCi Tc 99m Myoview at rest 25.3 mCi [id number] at stress 0.4 mg Lexiscan STRESS SYMPTOMS: Short of breath. EJECTION FRACTION: >70 % TECHNIQUE: The patient underwent pharmacologic stress with infusion of prescribed dose. Continuous ECG tracing was monitored during stress. Gated SPECT imaging was performed after stress and conventi onal SPECT imaging was performed at rest. The examination was performed on a SPECT/CT scanner, both attenuation and non-corrected datasets were reviewed. FINDINGS: Distribution: The maximum perfused segment at stress is in the lateral wall. Perfusion Study: The pattern of perfusion at stress is within normal limits. Gated Study: There are intact wall motion and wall thickening without hypokinetic or dyskinetic segm ents. The ejection fraction is calculated at >70%. RISK CATEGORY: Low (<1% Annual Motality Rate) CONCLUSION: 1. Unremarkable myocardial perfusion study. Electronically signed by: Meir Irizarry MD 08/12/2017 4:48 PM EDT
--- NOTE | 2017-08-12 17:33 | ECHRPT ---
Indication: Chest pain, unspecified CONCLUSIONS Normal left ventricular size and wall thickness. The left ventricular systolic function is normal wi th an estimated ejection fraction in the range of 55-60%. Left ventricular diastolic function parameters a re normal. BP: / HR: Rhythm: Sinus MEASUREMENTS (Male / Female) Normal Values Technical Quality:Poor 2D ECHO LV Diastolic Diameter PLAX 3.7 cm 4.2 - 5.9 / 3.9 - 5.3 cm LV Systolic Diameter PLAX 2.7 cm IVS Diastolic Thickness 0.7 cm 0.6 - 1.0 / 0.6 - 0.9 cm LVPW Diastolic Thickness 0.7 cm 0.6 - 1.0 / 0.6 - 0.9 cm LV Relative Wall Thickness 0.4 LVOT Diameter 2.0 cm M-MODE Aortic Root Diameter MM 3.2 cm LA Systolic Diameter MM 3.4 cm LA Ao Ratio MM 1.1 AV Cusp Separation MM 2.1 cm DOPPLER AV Peak Velocity 103.0 cm/s AV Peak Gradient 4.2 mmHg LVOT Peak Velocity 84.4 cm/s LVOT Peak Gradient 2.8 mmHg AV Area Cont Eq pk 2.6 cm Mitral E Point Velocity 63.7 cm/s Mitral A Point Velocity 42.4 cm/s Mitral E to A Ratio 1.5 LV E' Lateral Velocity 10.0 cm/s Mitral E to LV E' Lateral Ratio 6.4 LV E' Septal Velocity 8.6 cm/s Mitral E to LV E' Septal Ratio 7.4 FINDINGS LEFT VENTRICLE Normal left ventricular size and wall thickness. The left ventricular systolic function is normal wi th an estimated ejection fraction in the range of 55-60%. Left ventricular diastolic function parameters a re normal. RIGHT VENTRICLE Normal right ventricular size and systolic function. LEFT ATRIUM The left atrial size is normal. RIGHT ATRIUM The right atrial size is normal. AORTA The aortic root and proximal ascending aorta are normal in size on limited imaging. MITRAL VALVE Structurally normal mitral valve. No mitral valve stenosis or regurgitation. AORTIC VALVE Trileaflet aortic valve. No aortic valve stenosis or regurgitation. TRICUSPID VALVE Structurally normal tricuspid valve. No tricuspid valve stenosis or regurgitation. PULMONARY VALVE The pulmonary valve is not well visualized. VESSELS The inferior vena cava is normal in size. PERICARDIUM No pericardial effusion. Mian Garcia MD (Electronically Signed) Final Date:12 August 2017 17:32
[2017-08-12 17:53] LABS: Amphetamine Urine With Conf Neg (Neg); Barbiturate Urine With Conf Neg (Neg); Benzodiazepine Urine With Conf Neg (Neg)
--- NOTE | 2017-08-12 18:30 | ECG ---
Date Performed: 08/11/2017 Time Performed: 15:35:09 PTAGE: 47 years EKG: SINUS BRADYCARDIA BORDERLINE ECG PREVIOUS TRACING : 08/10/2017 18.42 since prior tracing,the sinus tachycardia has resolved. DOCTOR: Sabine Snell Interpretating Date/Time 08/12/2017 18:28:01
--- NOTE | 2017-08-12 18:43 | P.AMA ---
AMA Note - AMA Note AMA Statement: Patient Mlaathi Lane has decided to leave the hospital against medical advice. This patient has the capacity to refuse care and understands the risks of leaving, including permanent disability and/or , and has had an opportunity to ask questions about his/her condition. The patient has been informed that he/she may return for care at any time, and follow up has been arranged/advised. Patient is very upset that her belongings got searched and that she was found to have multiple unlabeled pills. States she has been taking the medication neurontin and clonazepam given to her by her , mother or aunt. States she is from [place] and she has no refill for the meds that she has been taking other family members medication. She mentioned and ask "are you the one that I am gonna see if I say I wanted to commit suicide?' Patient has been repeatedly asked if she wanted to commit suicide. States she does not want to commit suicide she wants to get out of the hospital and go department so that they can give her her Neurontin and clonazepam and medications that she needed. Patient is very distraught and very agitated. Patient is also threatening saying she got my name and the nurses name. Discussed with patient leaving AGAINST MEDICAL ADVICE. - AMA Note Discharge Disposition: Left Against Medical Advice
--- NOTE | 2017-08-12 19:05 | MB ---
cc: Renata Valles MD, [place] MD DATE: 08/12/2017 HISTORY OF PRESENT ILLNESS: Ms. Lane is a 47 -year-old white female with history of seizures, hepatitis C, drug abuse and bipolar disorder. She was brought after a witnessed seizure at home. She has no recollection of the event. She complains of mild lower substernal chest discomfort. She has not had any shortness of breath, peripheral edema, dizziness or palpitations. She was found to have elevated cardiac enzymes. PAST MEDICAL HISTORY: Seizures, drug abuse, hepatitis C, bipolar disorder. PAST SURGICAL HISTORY: Cholecystectomy, tubal ligation. MEDICATIONS: 1. Hydroxyzine. 2. Lorazepam. ALLERGIES: HALOPERIDOL. SOCIAL HISTORY: The patient is a smoker. She does not drink alcohol. She has history of substance abuse including marijuana. FAMILY HISTORY: Positive for heart disease in her mother. REVIEW OF SYSTEMS: Otherwise negative. PHYSICAL EXAMINATION: VITAL SIGNS: Blood pressure 140/86, pulse 74 and regular. HEENT: Negative. 2+ carotid upstrokes, no bruits. LUNGS: Clear. HEART: Regular with no murmur, gallop or rub. ABDOMEN: Soft. No bruits. EXTREMITIES: Without edema, 2+ distal pulses. NEUROLOGIC: Gross nonfocal. CARDIOLOGY STUDIES: EKG was reviewed and showed normal sinus rhythm. No acute changes. LABORATORY DATA: Hemoglobin 15.3. Potassium 3.3, creatinine 0.58. CK 1795 and 1090, CK-MB 17.7 and 13.7, troponin 1.91 and 1.44. DIAGNOSES: 1. Seizure. 2. Abnormal cardiac enzymes. 3. Bipolar disorder. 4. Smoking. 5. Substance abuse. 6. Hepatitis C. DISPOSITION: Ms. Lane will be scheduled for a Lexiscan myocardial perfusion study to evaluate for ischemia. She will be monitored on telemetry. She is going to undergo neurology evaluation. I will follow her for cardiology during her hospitalization. This was discussed with the patient and she understands the plan. Renata Valles MD OTejinder/ , 06:45 PM , 07:03 PM [facility]ITALBrigitte
[2017-08-16 15:43] LABS: CK Total ND U/L (44-196); CK-BB ND; CK-MB ND; CK-MM ND
== END 2017-08-12 18:35 | disposition left against medical advice (07) ==
LOC: NEPHCDU 18:20 → NEPC 18:20 → NEDA 18:20 → NEPHCDU 08-11 01:45 → NEDA 08-11 02:00
PROVIDERS: ADMIT Hospitalist; ATTEND Hospitalist
DX: R00.0 Tachycardia, unspecified; Z78.1 Physical restraint status; F31.9 Bipolar disorder, unspecified; F17.210 Nicotine dependence, cigarettes, uncomplicated; F19.939 Other psychoactive substance use, unspecified with withdrawal, unspecified; Z82.49 Family history of ischemic heart disease and other diseases of the circulatory system; R56.9 Unspecified convulsions; B18.2 Chronic viral hepatitis C; R07.89 Other chest pain; F12.90 Cannabis use, unspecified, uncomplicated; M62.82 Rhabdomyolysis; F41.9 Anxiety disorder, unspecified; R74.8 Abnormal levels of other serum enzymes